=== PATIENT | female | born 1960 | race Caucasian/White ===

== ENCOUNTER 2018-12-22 09:26 | Emergency (ER) | payer BC, OTHER ==
--- NOTE | 2018-12-22 09:58 | ED ---
General Adult HPI - General Chief complaint: Extremity Injury, Upper Stated complaint: Wrist pain Time Seen by Provider: 12/22/18 09:43 Source: patient Mode of arrival: ambulatory Limitations: no limitations - History of Present Illness Initial comments: Dictation was produced using [employer] dictation software. please excuse any grammatical, word or spelling errors. Chief Complaint: 58-year-old female presents with right wrist pain. History of Present Illness: She is 58-year-old female she works at an [employer]. Patient works usually with her hands and arms. She states she was lifting a object yesterday when she felt and in immediate pain to her right medial wrist. Patient made a report to occupational health. She went to bed and placed a splint on the wrist in that her symptoms would improve the following morning. She woke this morning and felt like her symptoms have been improved and feels slightly worse. She does have some throbbing. Patient has a numbness and paresthesias. Denies any loss of function. She has most of her pain with abduction and supination. The ROS documented in this emergency department record has been reviewed and confirmed by me. Those systems with pertinent positive or negative responses have been documented in the HPI. All other systems are other negative and/or noncontributory. PHYSICAL EXAM: General Impression: Alert and oriented x3, not in acute distress HEENT: Normocephalic atraumatic, extra-ocular movements intact, pupils equal and reactive to light bilaterally, mucous membranes moist. Cardiovascular: Heart regular rate and rhythm, S1&S2 audible, no murmurs, rubs or gallops Chest: Lungs clear to auscultation bilaterally, no rhonchi, no wheeze, no rales Abdomen: Bowel sounds present, abdomen soft, non-tender, non-distended, no organomegaly Musculoskeletal: Pulses present and equal in all extremities, no peripheral edema Motor: no focal deficits noted Neurological: CN II-XII grossly intact, no focal motor or sensory deficits noted Skin: Intact with no visualized rashes Psych: Normal affect and mood Wrist: Right wrist tenderness to palpation to the distal ulna. ED course: 58-year-old male presents with right wrist pain. Vital signs Upon arrival are within acceptable limits.X-rays unremarkable. Patient placed in a volar wrist splint for comfort. She is given outpatient referral to hand specialist. Patient went for discharge. Clinical presentation consistent with acute wrist strain. - Related Data Home Medications Medication Instructions Recorded Confirmed Dextroamphetamine/Amphetamine 20 mg PO BID 12/22/18 12/22/18 [Adderall] Multivitamins, Thera [Multivitamin 1 tab PO DAILY 12/22/18 12/22/18 (formulary)] Allergies Allergy/AdvReac Type Severity Reaction Status Date / Time Penicillins Allergy Rash/Hives Verified 12/22/18 10:01 Review of Systems ROS Statement: Those systems with pertinent positive or pertinent negative responses have been documented in the HPI. ROS Other: All systems not noted in ROS Statement are negative. Past Medical History Additional Past Medical History / Comment(s): hypotensive, syncopal episodes, brain aneurysm History of Any Multi-Drug Resistant Organisms: None Reported Past Surgical History: No Surgical Hx Reported Past Psychological History: ADD/ADHD Smoking Status: Current every day smoker Past Alcohol Use History: None Reported Past Drug Use History: None Reported General Exam Limitations: no limitations Course Vital Signs 12/22/18 12/22/18 09:34 09:59 Temperature 98.6 F Pulse Rate 104 H 95 Respiratory 20 13 Rate Blood Pressure 138/89 O2 Sat by Pulse 100 98 Oximetry Disposition Clinical Impression: Wrist strain Disposition: HOME SELF-CARE Condition: Good Is patient prescribed a controlled substance at d/c from ED?: No Referrals: Huang Leigh DO [Medical Doctor] - 1-2 days Time of Disposition: 10:23
[2018-12-22 10:01] VITALS: RESP 13
--- NOTE | 2018-12-22 10:12 | XR ---
EXAMINATION TYPE: XR wrist complete RT DATE OF EXAM: 12/22/2018 CLINICAL HISTORY: Pain TECHNIQUE: Frontal, lateral and oblique images of the right wrist are obtained. COMPARISON: None FINDINGS: There is no acute fracture/dislocation evident in the right wrist. The joint spaces in th e right wrist appear within normal limits. Soft tissue swelling overlying the distal ulna. IMPRESSION: There is no acute fracture or dislocation in the right wrist.
[2018-12-22 10:42] VITALS: BP 130/101; PULSE 76; TEMP 98.3
== END 2018-12-22 10:24 | disposition home or self-care (01) ==
LOC: EC 09:26
DX: S66.911A Strain of unspecified muscle, fascia and tendon at wrist and hand level, right hand, initial encounter (principal); F90.9 Attention-deficit hyperactivity disorder, unspecified type; F17.200 Nicotine dependence, unspecified, uncomplicated; Z79.899 Other long term (current) drug therapy; Z88.0 Allergy status to penicillin; X50.9XXA Other and unspecified overexertion or strenuous movements or postures, initial encounter; Y92.69 Other specified industrial and construction area as the place of occurrence of the external cause; Y99.0 Civilian activity done for income or pay
CPT/HCPCS: 29125; 99283

== ENCOUNTER 2020-10-09 16:07 | Emergency (ER) | payer BC ==
[2020-10-09 16:51] LABS: Basophils # (A) 0.1 k/uL (0-0.2); Basophils % (A) 1 %; Eosinophils # (A) 0.2 k/uL (0-0.7); Eosinophils % (A) 2 %; HCT 46.1 % (34.0-46.0); HGB 15.8 gm/dL (11.4-16.0); Lymphocytes % (A) 22 %; MCH 30.8 pg (25.0-35.0); MCHC 34.3 g/dL (31.0-37.0); Mean Platelet Volume 7.2; Monocytes # (A) 0.4 k/uL (0-1.0); Monocytes % (A) 4 %; Neutrophils # (A) 6.5 k/uL (1.3-7.7); Neutrophils % (A) 71 %; Platelet Count 317 k/uL (150-450); RBC 5.12 m/uL (3.80-5.40); RDW 12.4 % (11.5-15.5); WBC 9.1 k/uL (3.8-10.6)
[2020-10-09 17:00] LABS: ALT 12 U/L (4-34); AST 18 U/L (14-36); African American GFR (CKD) >90 (>60 ml/min/1.73 sqM); Albumin 4.8 g/dL (3.5-5.0); Alkaline Phosphatase 64 U/L (38-126); Anion Gap 13 mmol/L; Blood Urea Nitrogen 16 mg/dL (7-17); Calcium 10.4 mg/dL (8.4-10.2); Carbon Dioxide 21 mmol/L (22-30); Chloride 110 mmol/L (98-107); Glucose 101 mg/dL (74-99); Non-African American GFR(CKD) >90 (>60 ml/min/1.73 sqM); Partial Thromboplastin Time 22.9 sec (22.0-30.0); Potassium 3.9 mmol/L (3.5-5.1); Prothrombin Time 10.3 sec (9.0-12.0); Sodium 144 mmol/L (137-145); Total Bilirubin 0.5 mg/dL (0.2-1.3); Total Protein 7.5 g/dL (6.3-8.2)
--- NOTE | 2020-10-09 17:20 | ED ---
General Adult HPI - General Chief complaint: Neuro Symptoms/Deficit Stated complaint: facial drooping, slurred speech Time Seen by Provider: 10/09/20 16:52 Source: patient, family, RN notes reviewed Mode of arrival: wheelchair Limitations: altered mental status, physical limitation - History of Present Illness Initial comments: Patient is a pleasant 60-year-old female presenting to the emergency department with family with concerns for possible stroke. Onset of symptoms was 2 days ago. Family has noticed right-sided facial droop, confusion and slurred speech. Patient is also having some arm weakness and dragging the right leg. Patient denies headache. Patient does have history of ruptured aneurysm with repair just over 5 years ago. Patient admits to feeling somewhat confused. Patient also admits to having having problems finding her words. - Related Data Home Medications Medication Instructions Recorded Confirmed Dextroamphetamine/Amphetamine 20 mg PO BID 12/22/18 10/09/20 [Adderall] Topiramate [Topamax] 50 mg PO BID 10/09/20 10/09/20 Allergies Allergy/AdvReac Type Severity Reaction Status Date / Time Penicillins Allergy Rash/Hives Verified 10/09/20 17:37 Review of Systems ROS Statement: Those systems with pertinent positive or pertinent negative responses have been documented in the HPI. ROS Other: All systems not noted in ROS Statement are negative. Constitutional: Denies: fever Eyes: Denies: eye pain ENT: Denies: ear pain Respiratory: Denies: cough Cardiovascular: Denies: chest pain Endocrine: Denies: fatigue Gastrointestinal: Denies: abdominal pain Genitourinary: Denies: dysuria Musculoskeletal: Denies: back pain Skin: Denies: rash Neurological: Reports: as per HPI, weakness, confusion. Denies: headache Past Medical History Additional Past Medical History / Comment(s): hypotensive, syncopal episodes, brain aneurysm History of Any Multi-Drug Resistant Organisms: None Reported Past Surgical History: No Surgical Hx Reported Past Psychological History: ADD/ADHD Smoking Status: Current every day smoker Past Alcohol Use History: None Reported Past Drug Use History: None Reported General Exam Limitations: no limitations General appearance: alert, in no apparent distress Head exam: Present: atraumatic, normocephalic Eye exam: Present: normal appearance, PERRL, EOMI. Absent: nystagmus Neck exam: Present: normal inspection Respiratory exam: Present: normal lung sounds bilaterally Cardiovascular Exam: Present: regular rate, normal rhythm GI/Abdominal exam: Present: soft. Absent: tenderness Extremities exam: Present: normal inspection. Absent: pedal edema Neurological exam: Present: alert, altered, CN II-XII intact (Except for right facial droop) Expanded Neurological exam: Present: protecting the airway Patient oriented to: Absent: person, place, time Speech: Present: expressive aphasia Cranial nerves: EOM's Intact: Normal, Facial Sensation: Normal, Facial Palsy with Forehead Movement: Abnormal Right (Right facial droop. No forehead involvement) Sensory exam: Upper Extremity Light Touch: Normal, Lower Extremity Light Touch: Normal Motor strength exam: RUE: 3, LUE: 5, RLE: 3, LLE: 5 Eye Response: (4) open spontaneously Motor Response: (6) obeys commands Verbal Response: (4) confused conversation Psychiatric exam: Present: normal affect, normal mood Skin exam: Present: normal color Course Vital Signs 10/09/20 16:09 Temperature 97.9 F Pulse Rate 88 Respiratory 18 Rate Blood Pressure 137/87 O2 Sat by Pulse 99 Oximetry - Reevaluation(s) Reevaluation #1: 10/09/20 18:24 Call was received from radiologist with concern for occlusion left MCA M1 segment. There is also some artifact from coiling and subacute infarct. Please also some pulmonary nodules and tiny aneurysms and other spots. Case was discussed with Dr. Mathis who will evaluate films and call back. Medical Decision Making - Medical Decision Making Case was again discussed with Dr. Mathis who would like patient to be transferred to [facility] to the lab. He would like 300 mg of rectal aspirin. Case also discussed with his practitioner, Jodi. - Lab Data Result diagrams: 10/09/20 16:34 10/09/20 16:34 Lab Results 10/09/20 10/09/20 10/09/20 Range/Units 16:34 16:34 16:34 WBC 9.1 (3.8-10.6) k/uL RBC 5.12 (3.80-5.40) m/uL Hgb 15.8 (11.4-16.0) gm/dL Hct 46.1 H (34.0-46.0) % MCV 90.0 (80.0-100.0) fL MCH 30.8 (25.0-35.0) pg MCHC 34.3 (31.0-37.0) g/dL RDW 12.4 (11.5-15.5) % Plt Count 317 (150-450) k/uL MPV 7.2 Neutrophils % 71 % Lymphocytes % 22 % Monocytes % 4 % Eosinophils % 2 % Basophils % 1 % Neutrophils # 6.5 (1.3-7.7) k/uL Lymphocytes # 2.0 (1.0-4.8) k/uL Monocytes # 0.4 (0-1.0) k/uL Eosinophils # 0.2 (0-0.7) k/uL Basophils # 0.1 (0-0.2) k/uL PT 10.3 (9.0-12.0) sec INR 1.0 (<1.2) APTT 22.9 (22.0-30.0) sec Sodium 144 (137-145) mmol/L Potassium 3.9 (3.5-5.1) mmol/L Chloride 110 H (98-107) mmol/L Carbon Dioxide 21 L (22-30) mmol/L Anion Gap 13 mmol/L BUN 16 (7-17) mg/dL Creatinine 0.74 (0.52-1.04) mg/dL Est GFR (CKD-EPI)AfAm >90 (>60 ml/min/1.73 sqM) Est GFR (CKD-EPI)NonAf >90 (>60 ml/min/1.73 sqM) Glucose 101 H (74-99) mg/dL Calcium 10.4 H (8.4-10.2) mg/dL Total Bilirubin 0.5 (0.2-1.3) mg/dL AST 18 (14-36) U/L ALT 12 (4-34) U/L Alkaline Phosphatase 64 (38-126) U/L Troponin I (0.000-0.034) ng/mL Total Protein 7.5 (6.3-8.2) g/dL Albumin 4.8 (3.5-5.0) g/dL 10/09/20 Range/Units 16:34 WBC (3.8-10.6) k/uL RBC (3.80-5.40) m/uL Hgb (11.4-16.0) gm/dL Hct (34.0-46.0) % MCV (80.0-100.0) fL MCH (25.0-35.0) pg MCHC (31.0-37.0) g/dL RDW (11.5-15.5) % Plt Count (150-450) k/uL MPV Neutrophils % % Lymphocytes % % Monocytes % % Eosinophils % % Basophils % % Neutrophils # (1.3-7.7) k/uL Lymphocytes # (1.0-4.8) k/uL Monocytes # (0-1.0) k/uL Eosinophils # (0-0.7) k/uL Basophils # (0-0.2) k/uL PT (9.0-12.0) sec INR (<1.2) APTT (22.0-30.0) sec Sodium (137-145) mmol/L Potassium (3.5-5.1) mmol/L Chloride (98-107) mmol/L Carbon Dioxide (22-30) mmol/L Anion Gap mmol/L BUN (7-17) mg/dL Creatinine (0.52-1.04) mg/dL Est GFR (CKD-EPI)AfAm (>60 ml/min/1.73 sqM) Est GFR (CKD-EPI)NonAf (>60 ml/min/1.73 sqM) Glucose (74-99) mg/dL Calcium (8.4-10.2) mg/dL Total Bilirubin (0.2-1.3) mg/dL AST (14-36) U/L ALT (4-34) U/L Alkaline Phosphatase (38-126) U/L Troponin I <0.012 (0.000-0.034) ng/mL Total Protein (6.3-8.2) g/dL Albumin (3.5-5.0) g/dL - Radiology Data Radiology results: report reviewed (Computed tomography scan of the brain shows concern for subacute infarct. CTA was discussed with radiologist also shows a contusion of left M1 segment MCA. Artifact coiling. Subacute infarct. Multiple pulmonary nodules. Some tiny aneurysms.) Critical Care Time Critical Care Time: Yes Total Critical Care Time: 33 Disposition Clinical Impression: Cerebrovascular accident (CVA) Disposition: OTHER INSTITUTION NOT DEFINED Is patient prescribed a controlled substance at d/c from ED?: No Referrals: Milind,Mohit D, MD [Primary Care Provider] - 1-2 days Time of Disposition: 18:42 - Out of Hospital Transfer - Req. Specs Out of Hospital Transfer - Requested Specifics: Neurological ICU
--- NOTE | 2020-10-09 17:54 | CT ---
EXAMINATION TYPE: CT brain wo con for TPA DATE OF EXAM: 10/09/2020 COMPARISON: Brain 10/07/2015 HISTORY: 60-year-old female neurologic deficit, acute, stroke suspected. Right sided weakness. TECHNIQUE: Examination was done in axial plane without intravenous contrast. Coronal and sagittal r econstructions performed. CT DLP: 1576.2 mGycm Automated exposure control for dose reduction was used. FINDINGS: Focal hypodensity left basal ganglia, left [place] radiata, and patchy areas of hypodensity in the sub cortical region of the left posterior frontal lobe and left parietal lobe. There appears to be some asymmetric partial flattening of the left lateral ventricle. No midline shif t or herniation. No hydrocephalus. No evidence for acute intracranial hemorrhage. No extra-axial flui d collection seen. Coil or clip in anterior suprasellar region. Paranasal sinuses and mastoid air cells are well pneumatized. Orbits and globes are intact. IMPRESSION: 1. Multiple areas of hypodensity on the left including the basal ganglia, [place] radiata, posterior l eft frontal lobe, and left parietal lobe are new compared to 2016. The degree of hypodensity is more than expected for acute infarcts. Correlate for subacute to chronic areas of ischemia. There does see m to be slight mass effect on to the left lateral ventricle. No acute intracranial hemorrhage, midlin e shift or herniation. Consider MRI. 2. Interval ACOM aneurysm coiling compared to the 2016 CT.
--- NOTE | 2020-10-09 18:08 | CT ---
EXAMINATION TYPE: CT angio head neck DATE OF EXAM: 10/09/2020 COMPARISON: Brain same day HISTORY: 60-year-old female right sided weakness. TECHNIQUE: Contiguous axial scanning of the head and neck performed with IV Contrast, patient injecte d with 65 mL of Isovue 370. Delayed coronal/sagittal MIP reconstructions performed. 3-D reconstructio ns generated on a dedicated workstation. CT DLP: 1576.2 mGycm Automated exposure control for dose reduction was used. FINDINGS: Neck: Abnormal 1.4 cm nodule anterior right upper lobe. Additional scattered smaller pulmonary nodules are present. Ascending aorta ectatic at 3.8 cm. Bovine configuration to the aortic arch. Dominant left vertebral artery. Both vertebral arteries are patent throughout their course. The right common and internal carotid arteries are patent. The left common and internal carotid arteries are patent. Punctate calcifications in the bilateral palatine tonsils with a some hypertrophy. Findings suggest s equela of prior infections. HEAD: Dominant left vertebral artery. Both vertebral and basilar arteries are patent as is the remainder of the posterior circulation. Either a tiny 3 mm infundibulum or aneurysm at the origin of the left posterior communicating artery, axial image 54. Additional 3 mm saccular aneurysm projecting medially from the clinoid segment of the ICA just below the ophthalmic artery takeoff, axial image 47. There is occlusion at the level of the M1 segment left MCA. Coiling at the level of the anterior comm unicating artery. Remainder of the anterior circulation appears patent. IMPRESSION: 1. HEAD: M1 SEGMENT LEFT MIDDLE CEREBRAL ARTERY OCCLUSION. A 3 MM TINY ANEURYSM AT THE CLINOID SEGMEN T RIGHT ICA AND A 3 MM INFUNDIBULUM VERSUS ANEURYSM AT THE LEFT PCOM ORIGIN. PREVIOUS ACOM ANEURYSM C OILING. 2. NECK: WIDELY PATENT VERTEBRAL AND CAROTID ARTERIES OF THE NECK. INCIDENTAL PULMONARY NODULES IN TH E VISUALIZED UPPER LUNGS MEASURING UP TO 1.4 CM. CORRELATE FOR INFECTIOUS/INFLAMMATORY VERSUS NEOPLAS TIC ETIOLOGIES. METASTATIC DISEASE SHOULD BE EXCLUDED. CRITICAL FINDINGS CALLED TO THE ER AND GIVEN TO DR. MURRIETA AT 6:02 PM.
--- NOTE | 2020-10-09 18:29 | XR ---
EXAMINATION TYPE: XR chest 2V DATE OF EXAM: 10/09/2020 COMPARISON: None HISTORY: 60-year-old female confusion, altered mental status, right-sided weakness, aphasia. TECHNIQUE: AP and lateral views FINDINGS: The heart is borderline in size. Ectatic/tortuous thoracic aorta. No consolidation or pleural effusio n. Pulmonary nodule seen on the CT neck portion of the exam not well demonstrated radiographically. IMPRESSION: No definite acute process. Pulmonary nodules measuring up to 1.4 cm seen on the CTA neck are not well demonstrated radiographically.
[2020-10-09] MEDS ORDERED: ASPIRIN 300 MG SUPP RECTAL STA (18:31)
[2020-10-09 18:34] LABS: Appearance,Urine Clear (Clear); Bilirubin,Urine Negative (Negative); Blood,Urine Negative (Negative); Calcium Oxalate Crystals,Urine Rare /hpf; Color,Urine Yellow; Glucose,Urine (UA) Negative (Negative); Ketones,Urine 2+ (Negative); Leukocyte Esterase,Urine Trace (Negative); Mucus,Urine Rare /hpf; Nitrite,Urine Negative (Negative); Protein,Urine Negative (Negative); RBC,Urine 6 /hpf (0-5); Squamous Epithelial Cell,Urine 4 /hpf (0-4); Urobilinogen,Urine <2.0 mg/dL (<2.0); WBC,Urine 8 /hpf (0-5)
[2020-10-09 19:38] VITALS: RESP 18
[2020-10-09 19:39] VITALS: BP 132/77; PULSE 82; TEMP 98
== END 2020-10-09 19:05 | disposition other institution (70) ==
LOC: EC 16:07
DX: I63.9 Cerebral infarction, unspecified (principal); F90.9 Attention-deficit hyperactivity disorder, unspecified type; F17.200 Nicotine dependence, unspecified, uncomplicated; Z88.0 Allergy status to penicillin
CPT/HCPCS: 36415; 70450; 70496; 70498; 71046; 80053; 81001; 84484; 85025; 85610; 85730; 93005; 99291

== ENCOUNTER → 2020-12-04 | Outpatient (CLI) | payer BC ==
--- NOTE | 2020-12-05 15:58 | CT ---
EXAMINATION TYPE: CT angio head DATE OF EXAM: 12/04/2020 HISTORY: Hx stroke w/stent placement October 2020 COMPARISON: 10/09/2020 CT DLP: 1378 mGycm. Automated Exposure Control for Dose Reduction was Utilized. TECHNIQUE: CTA scan of the neck is performed with IV Contrast, patient injected with 200 mL of Isovu e 370, axial images are obtained, coronal and sagittal reformatted images are reviewed. Three-D recon structed images are created on an independent workstation and reviewed. Source images are reviewed. FINDINGS: Cervical of [place]: Aneurysm clip is in the midline in the suprasellar cistern previous appears below the anterior communicating artery. No focal aneurysm is identified at this time. The internal carotid arteries bifurcate normally into A1 segments. The right M1 segment appears jasmin l. Left M1 segment contains calcification. Vascular calcification is in the left middle cerebral joyce ry. Right middle cerebral artery distal branch vessels appear normal. Flow into the left middle cere bral artery branches is not identified. There are a few faint branches of the distal left middle cere bral artery and opercular loops which appear opacified. The Vertebral basilar system appears normal. Posterior cerebral vasculature is unremarkable. Right po sterior communicating artery is patent. Left posterior communicating artery is not identified. IMPRESSION: 1. Diminished blood flow to the distal left middle cerebral artery branches. The left M1 segment appe ars unopacified and calcified. 2. Midline aneurysm clip. No aneurysms are identified on the current exam.
== END | disposition home or self-care (01) ==
LOC: RADCTMAIN 18:53
PROVIDERS: ATTEND Family Medicine
DX: Z86.73 Personal history of transient ischemic attack (TIA), and cerebral infarction without residual deficits (principal)
CPT/HCPCS: 70496; Q9967

== ENCOUNTER → 2021-05-07 | Outpatient (CLI) | payer BC ==
--- NOTE | 2021-05-14 13:07 | P.ARTDOP ---
Arterial Doppler LOWER EXTREMITY ARTERIAL DOPPLER: DATE OF SERVICE: 05/07/2021 Reason for study: Suspected PVD. Doppler waveforms: Multiphasic bilaterally throughout with mildly blunted left digital waveforms and more moderately did blunted right digital waveforms. Pulse volume recording: []. Pressure gradients: Only at the right foot level. Ankle-brachial indices: Greater than 1 on the right and one on the left. Toe brachial indices: 0.40 on the right, 0.78 on the left Impression: Normal study. Blunted right digital waveforms and decrease in p ressure probably reflects vasoconstrictive process. Distal disease less likely..
== END | disposition home or self-care (01) ==
LOC: RADUSWWP 14:04 → EEVIPCON 14:20
PROVIDERS: ATTEND Internal Medicine Geriatric Medicine
DX: Z03.89 Encounter for observation for other suspected diseases and conditions ruled out (principal)
CPT/HCPCS: 93922

== ENCOUNTER 2021-07-24 19:15 | Emergency (ER) | payer BC ==
[2021-07-24] MEDS ORDERED: ACETAMINOPHEN TAB 500 MG TAB PO STA (23:18)
[2021-07-24] MEDS ORDERED: SODIUM CHLORIDE 0.9% 500 ML 500 ML IV STA (23:18)
--- NOTE | 2021-07-24 23:39 | ED ---
General Adult HPI - General Chief complaint: Fever Stated complaint: fever/weakness Time Seen by Provider: 07/24/21 22:37 Source: patient, RN notes reviewed Mode of arrival: wheelchair Limitations: physical limitation - History of Present Illness Initial comments: 52-year-old female presents to the emergency department accompanied by her family for evaluation of weakness and fever. Patient has a history of a CVA with right-upper extremity deficit and some expressive aphasia therefore family, who are also her caregivers, speak on her behalf. Family reports that patient has had increased generalized weakness and lethargy today which is not her norm al. She then developed a fever this evening and was given Tylenol just before 6 PM. Family reports the patient has had decreased appetite and poor oral intake today. She denies headache, cough, congestion, chest pain, shortness of breath, abdominal pain, nausea, vomiting, diarrhea, dysuria, back pain, or any known sick exposures. - Related Data Home Medications Medication Instructions Recorded Confirmed Dextroamphetamine/Amphetamine 20 mg PO BID@0730,1700 12/22/18 07/24/21 [Adderall] Aspirin EC [Ecotrin Low Dose] 81 mg PO DAILY@1700 07/24/21 07/24/21 Atorvastatin [Lipitor] 80 mg PO HS 07/24/21 07/24/21 Baclofen 5 mg PO TID 07/24/21 07/24/21 Sertraline [Zoloft] 100 mg PO DAILY 07/24/21 07/24/21 Ticagrelor [Brilinta] 90 mg PO BID 07/24/21 07/24/21 Previous Rx's Medication Instructions Recorded Nitrofurantoin Monohyd/M-Cryst 100 mg PO Q12HR 5 Days #10 cap 07/25/21 [Macrobid] Allergies Allergy/AdvReac Type Severity Reaction Status Date / Time Penicillins Allergy Rash/Hives Verified 07/24/21 23:21 Review of Systems ROS Statement: Those systems with pertinent positive or pertinent negative responses have been documented in the HPI. ROS Other: All systems not noted in ROS Statement are negative. Past Medical History Past Medical History: CVA/TIA Additional Past Medical History / Comment(s): hypotensive, syncopal episodes, br ain aneurysm History of Any Multi-Drug Resistant Organisms: None Reported Past Surgical History: No Surgical Hx Reported Additional Past Surgical History / Comment(s): brain coiling, thrombectomy Past Psychological History: ADD/ADHD Smoking Status: Former smoker Past Alcohol Use History: None Reported Past Drug Use History: None Reported General Exam Limitations: physical limitation General appearance: lethargic (Upon exam, patient appears lethargic but is easily arousable. She has a contracted right upper extremity and wears a brace on the right lower extremity. Initial temperature 98.9, recheck 102.6, pulse 114, respirations 22, blood pressure 125/72, pulse ox 96%.) Head exam: Present: atraumatic, normocephalic, normal inspection Eye exam: Present: normal appearance, PERRL, EOMI. Absent: scleral icterus, conjunctival injection ENT exam: Present: normal oropharynx, mucous membranes moist Neck exam: Present: normal inspection, full ROM. Absent: tenderness, lymphadenopathy Respiratory exam: Present: normal lung sounds bilaterally. Absent: respiratory distress, wheezes, rales, rhonchi, stridor, chest wall tenderness Cardiovascular Exam: Present: regular rate, normal rhythm, tachycardia, normal heart sounds. Absent: systolic murmur, diastolic murmur, rubs, gallop, clicks GI/Abdominal exam: Present: soft, normal bowel sounds. Absent: distended, tenderness, guarding, rebound, rigid Right General: Present: other (contracted RUE- baseline for pt). Absent: normal inspection Neurosensory exam: Present: radial nerve intact Vascular: Present: normal capillary refill. Absent: vascular compromise Right Hip exam: Present: normal inspection, full ROM (Baseline range of motion for Patient), pelvic stability. Absent: tenderness, swelling, external rotation, internal rotation, shortening Upper Leg exam: Present: normal inspection, full ROM (ROM baseline for pt). Absent: tenderness, swelling Knee exam: Present: normal inspection, full ROM. Absent: tenderness, swelling Lower Leg exam: Present: normal inspection, full ROM, swelling (mild dependent edema). Absent: tenderness Ankle exam: Present: normal inspection, full ROM, swelling (mild dependent edema). Absent: tenderness Foot/Toe exam: Present: normal inspection, full ROM. Absent: tenderness, swelling Neurovascular tendon exam: Present: no vascular compromise Back exam: Absent: tenderness, CVA tenderness (R), CVA tenderness (L), paraspinal tenderness, vertebral tenderness Neurological exam: Present: other (patient is lethargic but easily arousable.) Psychiatric exam: Present: flat affect Skin exam: Present: warm, dry, intact, normal color Course Vital Signs 07/24/21 07/25/21 07/25/21 20:37 00:50 02:24 Temperature 98.9 F 99.1 F Pulse Rate 114 H 87 Respiratory 22 18 Rate Blood Pressure 125/72 122/86 O2 Sat by Pulse 96 98 Oximetry - Reevaluation(s) Reevaluation #1: 07/25/21 00:50 Upon reevaluation, patient appears significantly improved. She is awake and alert. She responds to questions verbally. She follows commands without difficulty. Denies pain or discomfort at this time. Urinalysis is pending. 07/25/21 01:25 Urinalysis is positive. Patient will be treated with first dose of IV antibiotic while present in the emergency department. Discussed admission versus discharge home with patient and family. Patient strongly prefers home with oral antibiotic therapy. Family is agreeable with this plan. Medical Decision Making - Medical Decision Making 61-year-old female with past medical history of CVA, brain aneurysm, and right- sided mobility limitations presents to the emergency department for evaluation of fever and generalized weakness. Upon exam, patient initially appears lethargic, though is easily arousable. She does have some expressive aphasia which is baseline for her according to the family present at bedside. Patient lives with son who is also present at bedside. Daughter states the patient was quite weak this morning and did have a fall with no injuries. She did not strike her head and does not have any neck or back pain. Patient is on oral anticoagulant due to her CVA history; there are no focal neurological deficits. Patient is febrile with a temperature of 102.6. Family denies any sick contacts. Patient has not been vaccinated for influenza nor Covid. She does not have a cough, congestion, shortness of breath, difficulty breathing, nausea, vomiting, or diarrhea. She has had a lack of appetite throughout the day today. Patient was given Tylenol for her fever with significant improvement. Upon reevaluation, patient was noted to be far more alert and engaged in her assessment. She readily follow commands, responding verbally. Chest x-ray is negative. Influenza and Covid swabs are negative. Troponin negative. EKG shows normal rhythm, though tachycardic initially likely due to fever. Labor atory studies were reviewed. Mild leukocytosis and hyponatremia noted. Lactic acid is 1.3. Urinalysis is positive for nitrates, 1+ protein, 1+ ketone, small leukocyte esterase. Patient was given IV fluids and her UTI was treated with IV antibiotic. Discussed discharge home versus admission to the hospital. Shared decision making resulted in patient discharged home with family. She is prescri bed oral antibiotic which they are able to obtain for her. Follow-up care is reviewed. Strict return parameters were discussed. Patient and family verbalized understanding and agreed with plan. This patient's care was discussed with my attending Dr. Ricketts. - Lab Data Result diagrams: 07/24/21 23:45 07/24/21 23:45 Lab Results 07/24/21 07/24/21 07/24/21 Range/Units 23:45 23:45 23:45 WBC 13.3 H (3.8-10.6) k/uL RBC 4.77 (3.80-5.40) m/uL Hgb 14.5 (11.4-16.0) gm/dL Hct 42.7 (34.0-46.0) % MCV 89.5 (80.0-100.0) fL MCH 30.5 (25.0-35.0) pg MCHC 34.1 (31.0-37.0) g/dL RDW 13.9 (11.5-15.5) % Plt Count 191 (150-450) k/uL MPV 7.8 Neutrophils % 90 % Lymphocytes % 5 % Monocytes % 4 % Eosinophils % 1 % Basophils % 0 % Neutrophils # 11.9 H (1.3-7.7) k/uL Lymphocytes # 0.6 L (1.0-4.8) k/uL Monocytes # 0.5 (0-1.0) k/uL Eosinophils # 0.1 (0-0.7) k/uL Basophils # 0.0 (0-0.2) k/uL PT 11.7 (9.0-12.0) sec INR 1.1 (<1.2) APTT 29.0 (22.0-30.0) sec Sodium 133 L (137-145) mmol/L Potassium 3.6 (3.5-5.1) mmol/L Chloride 99 (98-107) mmol/L Carbon Dioxide 24 (22-30) mmol/L Anion Gap 10 mmol/L BUN 12 (7-17) mg/dL Creatinine 0.72 (0.52-1.04) mg/dL Est GFR (CKD-EPI)AfAm >90 (>60 ml/min/1.73 sqM) Est GFR (CKD-EPI)NonAf >90 (>60 ml/min/1.73 sqM) Glucose 119 H (74-99) mg/dL Plasma Lactic Acid Stone (0.7-2.0) mmol/L Calcium 9.1 (8.4-10.2) mg/dL Magnesium 1.7 (1.6-2.3) mg/dL Total Bilirubin 1.5 H (0.2-1.3) mg/dL AST 24 (14-36) U/L ALT 21 (4-34) U/L Alkaline Phosphatase 87 (38-126) U/L Troponin I (0.000-0.034) ng/mL Total Protein 7.3 (6.3-8.2) g/dL Albumin 4.1 (3.5-5.0) g/dL Urine Color Urine Appearance (Clear) Urine pH (5.0-8.0) Ur Specific [place] (1.001-1.035) Urine Protein (Negative) Urine Glucose (UA) (Negative) Urine Ketones (Negative) Urine Blood (Negative) Urine Nitrite (Negative) Urine Bilirubin (Negative) Urine Urobilinogen (<2.0) mg/dL Ur Leukocyte Esterase (Negative) Urine RBC (0-5) /hpf Urine WBC (0-5) /hpf Ur Squamous Epith Cells (0-4) /hpf Amorphous Sediment (None) /hpf Urine Bacteria (None) /hpf Urine Mucus (None) /hpf Urine Yeast (Budding) (None) /hpf Coronavirus (PCR) (Not Detectd) Influenza Type A RNA (Not Detectd) Influenza Type B (PCR) (Not Detectd) 07/24/21 07/24/21 07/24/21 Range/Units 23:45 23:45 23:45 WBC (3.8-10.6) k/uL RBC (3.80-5.40) m/uL Hgb (11.4-16.0) gm/dL Hct (34.0-46.0) % MCV (80.0-100.0) fL MCH (25.0-35.0) pg MCHC (31.0-37.0) g/dL RDW (11.5-15.5) % Plt Count (150-450) k/uL MPV Neutrophils % % Lymphocytes % % Monocytes % % Eosinophils % % Basophils % % Neutrophils # (1.3-7.7) k/uL Lymphocytes # (1.0-4.8) k/uL Monocytes # (0-1.0) k/uL Eosinophils # (0-0.7) k/uL Basophils # (0-0.2) k/uL PT (9.0-12.0) sec INR (<1.2) APTT (22.0-30.0) sec Sodium (137-145) mmol/L Potassium (3.5-5.1) mmol/L Chloride (98-107) mmol/L Carbon Dioxide (22-30) mmol/L Anion Gap mmol/L BUN (7-17) mg/dL Creatinine (0.52-1.04) mg/dL Est GFR (CKD-EPI)AfAm (>60 ml/min/1.73 sqM) Est GFR (CKD-EPI)NonAf (>60 ml/min/1.73 sqM) Glucose (74-99) mg/dL Plasma Lactic Acid Stone 1.3 (0.7-2.0) mmol/L Calcium (8.4-10.2) mg/dL Magnesium (1.6-2.3) mg/dL Total Bilirubin (0.2-1.3) mg/dL AST (14-36) U/L ALT (4-34) U/L Alkaline Phosphatase (38-126) U/L Troponin I <0.012 (0.000-0.034) ng/mL Total Protein (6.3-8.2) g/dL Albumin (3.5-5.0) g/dL Urine Color Urine Appearance (Clear) Urine pH (5.0-8.0) Ur Specific [place] (1.001-1.035) Urine Protein (Negative) Urine Glucose (UA) (Negative) Urine Ketones (Negative) Urine Blood (Negative) Urine Nitrite (Negative) Urine Bilirubin (Negative) Urine Urobilinogen (<2.0) mg/dL Ur Leukocyte Esterase (Negative) Urine RBC (0-5) /hpf Urine WBC (0-5) /hpf Ur Squamous Epith Cells (0-4) /hpf Amorphous Sediment (None) /hpf Urine Bacteria (None) /hpf Urine Mucus (None) /hpf Urine Yeast (Budding) (None) /hpf Coronavirus (PCR) (Not Detectd) Influenza Type A RNA Not Detected (Not Detectd) Influenza Type B (PCR) Not Detected (Not Detectd) 07/24/21 07/25/21 Range/Units 23:45 00:47 WBC (3.8-10.6) k/uL RBC (3.80-5.40) m/uL Hgb (11.4-16.0) gm/dL Hct (34.0-46.0) % MCV (80.0-100.0) fL MCH (25.0-35.0) pg MCHC (31.0-37.0) g/dL RDW (11.5-15.5) % Plt Count (150-450) k/uL MPV Neutrophils % % Lymphocytes % % Monocytes % % Eosinophils % % Basophils % % Neutrophils # (1.3-7.7) k/uL Lymphocytes # (1.0-4.8) k/uL Monocytes # (0-1.0) k/uL Eosinophils # (0-0.7) k/uL Basophils # (0-0.2) k/uL PT (9.0-12.0) sec INR (<1.2) APTT (22.0-30.0) sec Sodium (137-145) mmol/L Potassium (3.5-5.1) mmol/L Chloride (98-107) mmol/L Carbon Dioxide (22-30) mmol/L Anion Gap mmol/L BUN (7-17) mg/dL Creatinine (0.52-1.04) mg/dL Est GFR (CKD-EPI)AfAm (>60 ml/min/1.73 sqM) Est GFR (CKD-EPI)NonAf (>60 ml/min/1.73 sqM) Glucose (74-99) mg/dL Plasma Lactic Acid Stone (0.7-2.0) mmol/L Calcium (8.4-10.2) mg/dL Magnesium (1.6-2.3) mg/dL Total Bilirubin (0.2-1.3) mg/dL AST (14-36) U/L ALT (4-34) U/L Alkaline Phosphatase (38-126) U/L Troponin I (0.000-0.034) ng/mL Total Protein (6.3-8.2) g/dL Albumin (3.5-5.0) g/dL Urine Color Yellow Urine Appearance Clear (Clear) Urine pH 5.5 (5.0-8.0) Ur Specific [place] 1.015 (1.001-1.035) Urine Protein 1+ H (Negative) Urine Glucose (UA) Negative (Negative) Urine Ketones 1+ H (Negative) Urine Blood Moderate H (Negative) Urine Nitrite Positive H (Negative) Urine Bilirubin Negative (Negative) Urine Urobilinogen <2.0 (<2.0) mg/dL Ur Leukocyte Esterase Small H (Negative) Urine RBC 18 H (0-5) /hpf Urine WBC 14 H (0-5) /hpf Ur Squamous Epith Cells 1 (0-4) /hpf Amorphous Sediment Occasional H (None) /hpf Urine Bacteria Rare H (None) /hpf Urine Mucus Rare H (None) /hpf Urine Yeast (Budding) Rare H (None) /hpf Coronavirus (PCR) Not Detected (Not Detectd) Influenza Type A RNA (Not Detectd) Influenza Type B (PCR) (Not Detectd) - EKG Data EKG shows normal: sinus rhythm Rate: tachycardia EKG Comments: EKG was obtained 2355 and sinus tachycardia with nonspecific T-wave changes. Ventricular rate 107, WV interval 158, QRS duration 97, QT/QTc is 307/370. Interpretation abnormal ECG. - Radiology Data Radiology results: report reviewed, image reviewed Two-view chest x-ray was obtained. Report was reviewed in its entirety. Impression per Dr. Humphries is no active cardiopulmonary disease. Normal heart. No change. Disposition Clinical Impression: Fever, UTI (urinary tract infection) Disposition: HOME SELF-CARE Condition: Stable Instructions (If sedation given, give patient instructions): Urinary Tract Infection in Women (ED), Fever in Adults (ED) Additional Instructions: Take antibiotic as directed. Use Tylenol for fever control. Increase intake of fluids. Please call the PCP in the morning to schedule follow-up appointment. Return to the emergency department with any new, worsening, or concerning symptoms. Prescriptions: Nitrofurantoin Monohyd/M-Cryst [Macrobid] 100 mg PO Q12HR 5 Days #10 cap Is patient prescribed a controlled substance at d/c from ED?: No Referrals: Mohit Douglass MD [Primary Care Provider] - 1-2 days Time of Disposition: 02:11
[2021-07-25 00:06] LABS: Basophils % (A) 0 %; Eosinophils # (A) 0.1 k/uL (0-0.7); Eosinophils % (A) 1 %; HCT 42.7 % (34.0-46.0); HGB 14.5 gm/dL (11.4-16.0); Lymphocytes # (A) 0.6 k/uL (1.0-4.8); Lymphocytes % (A) 5 %; MCH 30.5 pg (25.0-35.0); MCHC 34.1 g/dL (31.0-37.0); MCV 89.5 fL (80.0-100.0); Mean Platelet Volume 7.8; Monocytes # (A) 0.5 k/uL (0-1.0); Monocytes % (A) 4 %; Neutrophils # (A) 11.9 k/uL (1.3-7.7); Neutrophils % (A) 90 %; Platelet Count 191 k/uL (150-450); RBC 4.77 m/uL (3.80-5.40); RDW 13.9 % (11.5-15.5); WBC 13.3 k/uL (3.8-10.6)
[2021-07-25 00:10] LABS: ALT 21 U/L (4-34); AST 24 U/L (14-36); African American GFR (CKD) >90 (>60 ml/min/1.73 sqM); Albumin 4.1 g/dL (3.5-5.0); Alkaline Phosphatase 87 U/L (38-126); Anion Gap 10 mmol/L; Blood Urea Nitrogen 12 mg/dL (7-17); Calcium 9.1 mg/dL (8.4-10.2); Carbon Dioxide 24 mmol/L (22-30); Chloride 99 mmol/L (98-107); Glucose 119 mg/dL (74-99); Magnesium 1.7 mg/dL (1.6-2.3); Non-African American GFR(CKD) >90 (>60 ml/min/1.73 sqM); Potassium 3.6 mmol/L (3.5-5.1); Sodium 133 mmol/L (137-145); Total Bilirubin 1.5 mg/dL (0.2-1.3); Total Protein 7.3 g/dL (6.3-8.2)
[2021-07-25 00:15] LABS: INR 1.1 (<1.2); Prothrombin Time 11.7 sec (9.0-12.0)
--- NOTE | 2021-07-25 00:29 | XR ---
EXAMINATION TYPE: XR chest 2V DATE OF EXAM: 07/25/2021 COMPARISON: 10/09/2020 HISTORY: Weakness TECHNIQUE: 2 views FINDINGS: There is no heart failure and are confluent and likely infiltrate. Costophrenic angles are clear. There are no hilar masses. Thoracic aorta is atheromatous. IMPRESSION: No active cardiopulmonary disease. Normal heart. No change.
[2021-07-25 00:50] VITALS: TEMP 99.1
[2021-07-25 01:15] LABS: Amorphous Sediment,Urine Occasional /hpf; Appearance,Urine Clear (Clear); Bacteria,Urine Rare /hpf; Bilirubin,Urine Negative (Negative); Blood,Urine Moderate (Negative); Budding Yeast,Urine Rare /hpf; Color,Urine Yellow; Glucose,Urine (UA) Negative (Negative); Ketones,Urine 1+ (Negative); Leukocyte Esterase,Urine Small (Negative); Mucus,Urine Rare /hpf; Nitrite,Urine Positive (Negative); PH, Urine 5.5 (5.0-8.0); Protein,Urine 1+ (Negative); RBC,Urine 18 /hpf (0-5); Specific Gravity,Urine 1.015 (1.001-1.035); Squamous Epithelial Cell,Urine 1 /hpf (0-4); Urobilinogen,Urine <2.0 mg/dL (<2.0); WBC,Urine 14 /hpf (0-5)
[2021-07-25] MEDS ORDERED: cefTRIAXone IN SWFI 1,000 MG/10 ML SYRINGE IVP STA (02:05)
[2021-07-25 02:25] VITALS: BP 122/86; PULSE 87; RESP 18
== END 2021-07-25 02:27 | disposition home or self-care (01) ==
LOC: EC 19:15
DX: N39.0 Urinary tract infection, site not specified (principal); F90.9 Attention-deficit hyperactivity disorder, unspecified type; Z87.891 Personal history of nicotine dependence; Z79.82 Long term (current) use of aspirin; Z79.899 Other long term (current) drug therapy; Z20.822 Contact with and (suspected) exposure to COVID-19
CPT/HCPCS: 36415; 93005; 80053; 83605; 83735; 84484; 85025; 85610; 85730; 81001; 87040; 87086; 87502; 87635; 71046; 99285; 96374; J0696